=== PATIENT | female | born 1990 | race American Indian/Alaskan Native ===

== ENCOUNTER 2018-01-13 20:07 | Outpatient (CLI) | payer MEDICAID ==
[2018-01-13 20:23] VITALS: BP 114/79
[2018-01-13] MEDS ORDERED: LACTATED RINGERS 500 ML IV ONE (22:05)
[2018-01-13] MEDS ORDERED: LACTATED RINGERS 1,000 ML IV SCH (23:00)
[2018-01-13 23:21] LABS: Bacteria,Urine 1+ /HPF (Negative); Bilirubin,Urine NEG (Negative); Blood,Urine NEG (Negative); Color,Urine Yellow (Yellow); Mucus,Urine 3+ /HPF
[2018-01-14] MEDS ORDERED: MACROBID PO ONE (01:34)
[2018-01-14] MEDS ORDERED: BRETHINE SUB-Q ONE (01:35)
== END 2018-01-14 02:29 | disposition home or self-care (01) ==
LOC: TRG 20:07
PROVIDERS: ATTEND Obstetrics & Gynecology
DX: O26.893 Other specified pregnancy related conditions, third trimester (principal); R25.2 Cramp and spasm; Z3A.34 34 weeks gestation of pregnancy
CPT/HCPCS: 36415; 81001; 82731; J3105; J7120; 59025; 96372